=== PATIENT | female | born 2000 | race Caucasian/White ===

== ENCOUNTER 2022-05-03 18:15 | Emergency (ER) | payer OTHER, SELFPAY ==
[2022-05-03 18:18] VITALS: BP 111/75; PULSE 70; RESP 14; TEMP 36.3; O2SAT 100
--- NOTE | 2022-05-03 18:37 | ED.HEATRA ---
HPI - Head Injury General Chief complaint: Head Injury Stated complaint: Head Injury Time Seen by Provider: 05/03/22 18:32 History of Present Illness HPI Narrative: 22-year-old female presents to the emergency room for evaluation of a head injury. Patient states that she rolled out of bed this morning and struck her head on the dresser. Denies any LOC or altered mental status. Denies any nausea or vomiting. Denies any vision or hearing changes. Denies taking any medications to alleviate her headache. States that she went to work and worked a complete shift without incident today. Denies any dizziness or lightheadedness. Patient states that she took a nap prior to arrival and was able to wake up without any extensive somnolence. Review of Systems Review of Systems: CONSTITUTIONAL: Denies fever, chills, or sweats. EYES: Denies visual changes, redness, or discharge. ENT: Denies rhinorrhea, congestion, sore throat, or otalgia. CARDIOVASCULAR: Denies chest pain, palpitations, or edema. RESPIRATORY: Denies cough or dyspnea. GASTROINTESTINAL: Denies abdominal pain, nausea, vomiting, or diarrhea. GENITOURINARY: Denies dysuria or hematuria. SKIN: Denies rash or itching. MUSCULOSKELETAL: Denies back pain, joint pain, or myalgia. NEUROLOGIC: Denies headache, numbness, dizziness, or weakness. PSYCHIATRIC: Denies anxiety or depression. Exam Narrative: GENERAL: Well-appearing, well-nourished, no physical limitations, and in no acute distress. HEAD: Normocephalic, atraumatic. EYES: Conjunctivae normal, PERRLA and EOMI. ENT: External nose normal, Nares clear, no rhinorrhea or epistaxis. Mucous membranes moist. Oropharynx without tonsillar hypertrophy exudate or other lesions. External ears normal, bilateral TMs normal bilaterally NECK: Supple. CHEST: Clear to auscultation. No respiratory distress. No wheezes rales or rhonchi. HEART: Regular rate and rhythm. No murmur heard. Normal peripheral pulses. BACK: No midline cervical tenderness, step-offs, bony abnormality; FROM EXTREMITIES: Normal range of motion. No edema. No clubbing or cyanosis SKIN: Warm, dry, no rash. No noted wounds NEURO: No focal deficits. Alert and oriented x3. MAEW. CN's II-XI intact bilaterally, normal gait PSYCH: Cooperative. Normal mood and affect. Course Vital Signs Vital signs: Vital Signs Temperature 36.3 C L 05/03/22 18:18 Pulse Rate 70 05/03/22 18:18 Respiratory Rate 14 05/03/22 18:18 Blood Pressure 111/75 05/03/22 18:18 Pulse Oximetry 100 05/03/22 18:18 Oxygen Delivery Room Air 05/03/22 18:18 Temperature 36.3 C L 05/03/22 18:18 Pulse Rate 70 05/03/22 18:18 Respiratory Rate 14 05/03/22 18:18 Blood Pressure 111/75 05/03/22 18:18 Pulse Oximetry 100 05/03/22 18:18 Oxygen Delivery Room Air 05/03/22 18:18 MDM - Head Injury MDM Narrative Medical decision making narrative: 22-year-old female presented for evaluation of a head injury that occurred 13 hours ago. Patient is asymptomatic on presentation to the ER. Denies any altered mental status loss of consciousness or somnolence. Patient shows no signs of head injury red flags. Discharge Plan Discharge Clinical Impression: Closed head injury Patient Disposition: Home, Self-Care Condition: Stable Follow-up/Referrals: PHYSICIAN,[employer] [Primary Care Provider] - Time of Disposition: 18:39
== END 2022-05-03 19:17 | disposition home or self-care (01) ==
PROVIDERS: Emergency Provider Nurse Practitioner Family
DX: S09.90XA Unspecified injury of head, initial encounter (principal); W06.XXXA Fall from bed, initial encounter
CPT/HCPCS: 99283

== ENCOUNTER 2022-07-18 11:50 | Emergency (ER) | payer OTHER, SELFPAY ==
--- NOTE | ~2022-07-18 | XR_ITS ---
EXAMINATION: XR hand RT min 3V, XR wrist RT min 3V DATE: 07/18/2022 12:43 INDICATION: Right hand and wrist injury TECHNIQUE: 1. Posteroanterior, ulnar deviation, oblique, and lateral views of the right wrist were obtained. 2. Dorsal palmar, oblique and lateral views of the right hand were obtained. COMPARISON: None. FINDINGS: Alignment of the right hand and wrist is normal. No fracture identified. Joint spaces are normal. No focal soft tissue swelling. IMPRESSION: 1. Negative right hand and wrist radiographs. Reviewed, dictated and finalized at location A. IMPRESSION: 1. Negative right hand and wrist radiographs.
[2022-07-18 11:59] VITALS: BP 109/56; PULSE 90; RESP 16; TEMP 36.6; O2SAT 100
--- NOTE | 2022-07-18 12:30 | ED.GENADULT ---
HPI - General Adult General Chief complaint: Extremity Injury, Upper Stated complaint: Right hand pain Time Seen by Provider: 07/18/22 12:06 Source: patient Mode of arrival: ambulatory Limitations: no limitations History of Present Illness HPI narrative: This is a 22-year-old biological female who identifies as male who presents to the ED with chief complaint of right upper extremity injury occurring yesterday. Patient states that he was grabbing a weight off of the bench at the gym when the weight fell onto his hand while his hand was on the ground. Reports pain in the wrist. Denies bruising. States the pain has been about the same today as it was yesterday. Denies numbness or weakness. Related Data Allergies Allergy/AdvReac Type Severity Reaction Status Date / Time No Known Allergies Allergy Verified 07/18/22 13:33 Review of Systems Review of Systems: CONSTITUTIONAL: Denies fever, chills, or sweats. SKIN: Denies rash or itching. Denies bruising MUSCULOSKELETAL: Endorses right wrist pain. Denies back pain, joint pain, or myalgia. NEUROLOGIC: Denies headache, numbness, dizziness, or weakness. PSYCHIATRIC: Denies anxiety or depression. Exam Narrative: GENERAL: Well-appearing, well-nourished, and in no acute distress. HEAD: Normocephalic, atraumatic. EXTREMITIES: Right wrist: Tenderness in around the carpals and fourth and fifth metacarpal. No tenderness in the phalanges. Normal range of motion. No edema. Good strength and sensation. Negative anatomical snuffbox tenderness. Left upper extremity: Benign. No other tenderness throughout the right upper extremity. MSK exam is otherwise benign. SKIN: Warm, dry, no rash. NEURO: Alert and oriented x3. No focal deficits. PSYCH: Normal mood and affect. Course Vital Signs Vital signs: Vital Signs Temperature 97.8 F 07/18/22 11:59 Pulse Rate 90 07/18/22 11:59 Respiratory Rate 16 07/18/22 11:59 Blood Pressure 109/56 L 07/18/22 11:59 Pulse Oximetry 100 07/18/22 11:59 Oxygen Delivery Room Air 07/18/22 11:59 Temperature 97.8 F 07/18/22 11:59 Pulse Rate 90 07/18/22 11:59 Respiratory Rate 16 07/18/22 11:59 Blood Pressure 109/56 L 07/18/22 11:59 Pulse Oximetry 100 07/18/22 11:59 Oxygen Delivery Room Air 07/18/22 11:59 Medical Decision Making MDM Narrative Medical decision making narrative: This is a 22-year-old biological female who identifies as male, coming into the ED for chief complaint of right wrist injury occurring yesterday. Apparently patient dropped a weight from the bench press onto their right hand. Vitals stable. Exam shows tenderness in the right fourth and fifth metacarpals. X-rays of the right hand are negative. No snuffbox tenderness. Encourage patient to get an [id number] brace for wrist strain and follow-up with PCP on this. Prescription for naproxen given. Patient is understanding and agreeable with plan for discharge. Supportive measures discussed and return precautions Vital Signs Vital Signs: Vital Signs Temperature 97.8 F 07/18/22 11:59 Pulse Rate 90 07/18/22 11:59 Respiratory Rate 16 07/18/22 11:59 Blood Pressure 109/56 L 07/18/22 11:59 Pulse Oximetry 100 07/18/22 11:59 Oxygen Delivery Room Air 07/18/22 11:59 Temperature 97.8 F 07/18/22 11:59 Pulse Rate 90 07/18/22 11:59 Respiratory Rate 16 07/18/22 11:59 Blood Pressure 109/56 L 07/18/22 11:59 Pulse Oximetry 100 07/18/22 11:59 Oxygen Delivery Room Air 07/18/22 11:59 Discharge Plan Discharge Clinical Impression: Sprain and strain of wrist Patient Disposition: Home, Self-Care Condition: Stable Instructions: Antibiotic Form, Wrist Sprain (ED) Additional Instructions: Symptoms consistent with a wrist strain or sprain. No fractures on x-ray. I would get a [id number] wrist brace at [facility] or [facility]. Prescription for naproxen given for pain. Please follow-up with your primary
== END 2022-07-18 13:45 | disposition home or self-care (01) ==
LOC: ANHED 13:40
PROVIDERS: Emergency Provider Physician Assistant
DX: S63.501A Unspecified sprain of right wrist, initial encounter (principal); S66.911A Strain of unspecified muscle, fascia and tendon at wrist and hand level, right hand, initial encounter; W20.8XXA Other cause of strike by thrown, projected or falling object, initial encounter; Y93.B3 Activity, free weights
CPT/HCPCS: 73110; 73130; 99283

== ENCOUNTER 2023-04-23 17:30 | Emergency (ER) | payer SELFPAY ==
[2023-04-23 17:40] VITALS: BP 117/71; PULSE 58; RESP 16; TEMP 36.8; O2SAT 100
--- NOTE | 2023-04-23 18:10 | ED.URI ---
HPI - URI/Sore Throat General Chief Complaint: Upper Respiratory Infection Stated Complaint: Fever Time Seen by Provider: 04/23/23 18:10 Source: patient and RN notes reviewed Mode of arrival: ambulatory Limitations: no limitations History of Present Illness HPI Narrative: 23-year-old presents with concern for 1 and half week history of cough, nasal congestion and drainage. Reports initially had fevers. Reports they have been taking DayQuil without relief. MD elicited complaint: nasal congestion Related Data Allergies Allergy/AdvReac Type Severity Reaction Status Date / Time No Known Allergies Allergy Verified 04/23/23 17:47 Review of Systems Review of Systems: CONSTITUTIONAL: Denies malaise, chills, sweats, or fever. EYES: Denies visual changes, redness, or discharge. ENT: Reports rhinorrhea, congestion, sinus pain CARDIOVASCULAR: Denies chest pain, palpitations, or edema. RESPIRATORY: Reports cough. Denies dyspnea. GASTROINTESTINAL: Denies abdominal pain, nausea, vomiting, diarrhea SKIN: Denies rash or itching. MUSCULOSKELETAL: Denies myalgia. NEUROLOGIC: Denies headache. All systems reviewed & are unremarkable except as noted in HPI and below PMFSH Comments At time of signature, agree with nursing past medical, surgical, social and family history. There is no relevant family history pertinent to the presenting complaint Exam Narrative: GENERAL: Well-appearing, well-nourished, and in no acute distress. HEAD: Normocephalic EYES: PERRLA, conjunctivae clear ENT: Nares clear, turbinates edematous and erythematous, clear discharge. Mucous membranes moist. TM pearly jose with dull light reflex bilaterally; no tragal tenderness. Oropharynx not erythematous without lesions. Tonsils not enlarged and without exudate, no drooling, no hoarseness, no trismus, uvula midline. NECK: Supple. No lymphadenopathy CHEST: Clear to auscultation, breath sounds equal. No wheezing, rhonchi, rales, or stridor. No respiratory distress, speaks in full sentences. HEART: Regular rate and rhythm. No murmur heard. SKIN: Warm, dry, no rash. NEURO: Alert and oriented x3. PSYCH: Normal mood and affect Course Course Emergency Course: Patient is aware of diagnosis, understands and agrees to treatment plan. Anticipatory guidance given. Patient agrees to follow-up as directed and is aware of reasons to seek care at the emergency department. Portions of this record may have been created with voice recognition software Level of Care: Express Care Visit Vital Signs Vital signs: Vital Signs Temperature 98.2 F 04/23/23 17:40 Pulse Rate 58 L 04/23/23 17:40 Respiratory Rate 16 04/23/23 17:40 Blood Pressure 117/71 04/23/23 17:40 Pulse Oximetry 100 04/23/23 17:40 Oxygen Delivery Room Air 04/23/23 17:40 Temperature 98.2 F 04/23/23 17:40 Pulse Rate 58 L 04/23/23 17:40 Respiratory Rate 16 04/23/23 17:40 Blood Pressure 117/71 04/23/23 17:40 Pulse Oximetry 100 04/23/23 17:40 Oxygen Delivery Room Air 04/23/23 17:40 Reviewed. MDM - URI/Sore Throat MDM Narrative Medical decision making narrative: Differential diagnosis considered: Coelho virus, strep pharyngitis, allergic rhinitis, upper respiratory tract infection, sinusitis, rhinosinusitis, nasopharyngitis. viral pharyngitis, otitis media, otitis externa, pneumonia, bronchitis, viral cough syndrome, viral syndrome, and influenza. Exam findings show no acute concerns or changes; patient is non-toxic appearing and is in no distress. Patient is appropriate for outpatient treatment and follow-up. Lab Data Attestation: I reviewed the patient's lab results. Critical Care Time Critical Care Time Critical Care Time: No Discharge Plan Discharge Clinical Impression: Sinobronchitis Patient Disposition: Home, Self-Care Condition: Stable Instructions: Antibiotic Form, Sinusitis (ED), Acute Bronchitis (ED) Additional Instructions: Take medication a
== END 2023-04-23 18:24 | disposition home or self-care (01) ==
PROVIDERS: Emergency Provider Nurse Practitioner
DX: J40 Bronchitis, not specified as acute or chronic (principal)
CPT/HCPCS: 99213; G0463

== ENCOUNTER 2023-09-04 14:23 | Emergency (ER) | payer SELFPAY ==
[2023-09-04 14:25] VITALS: BP 122/70; PULSE 79; RESP 20; TEMP 36.8; O2SAT 100
--- NOTE | 2023-09-04 17:59 | ED.DENTAL ---
HPI - Dental/Oral General Chief complaint: Dental/Oral Stated complaint: jaw pain Time Seen by Provider: 09/04/23 17:07 Source: patient Mode of arrival: ambulatory Limitations: no limitations History of Present Illness HPI Narrative: This is a 23 year old that presents to the ER for bleeding gums. Reports irritation and bleeding to the gums. They do not currently have a dentist. Also reports pain at the TMJ bilaterally. They have been taking Tylenol and anti-inflammatories with little relief. Denies fevers, recent injuries. Related Data Allergies Allergy/AdvReac Type Severity Reaction Status Date / Time No Known Allergies Allergy Verified 09/04/23 16:16 Review of Systems Review of Systems: CONSTITUTIONAL: Denies fever ENT: Reports dentalgia MUSCULOSKELETAL: Reports joint pain, and myalgia. All systems reviewed & are unremarkable except as noted in HPI and below PMFSH Past Medical History Medical History (Updated 09/04/23 @ 18:08 by Emely Mauro PA-C) No active medical problems Social History Social History (Updated 09/04/23 @ 18:08 by Emely Mauro PA-C) Substance use: never Exam Narrative: GENERAL: Well-appearing, well-nourished, and in no acute distress. HEAD: Normocephalic, atraumatic. EYES: EOMI. ENT: Mucous membranes moist. Oropharynx without tonsillar hypertrophy exudate or other lesions. Pain at the TMJ with ROM. Gingiva are erythematous with plaque build up. No edema or fluctuance to suggest abscess NECK: Supple. No adenopathy or masses. CHEST: Clear to auscultation. No respiratory distress. No wheezes rales or rhonchi HEART: Regular rate and rhythm. No murmur heard. Normal peripheral pulses. EXTREMITIES: Normal range of motion. No edema. SKIN: Warm, dry, no rash. NEURO: No focal deficits. Alert and oriented x3. PSYCH: Normal mood and affect Course Course Emergency Course: Patient agrees with plan of care Vital Signs Vital signs: Vital Signs Temperature 98.3 F 09/04/23 14:25 Pulse Rate 79 09/04/23 14:25 Respiratory Rate 20 09/04/23 14:25 Blood Pressure 122/70 09/04/23 14:25 Pulse Oximetry 100 09/04/23 14:25 Oxygen Delivery Room Air 09/04/23 14:25 Temperature 98.3 F 09/04/23 14:25 Pulse Rate 79 09/04/23 14:25 Respiratory Rate 20 09/04/23 14:25 Blood Pressure 122/70 09/04/23 14:25 Pulse Oximetry 100 09/04/23 14:25 Oxygen Delivery Room Air 09/04/23 14:25 MDM - Dental/Oral MDM Narrative Medical decision making narrative: Patient presents to the emergency department for pain in the TMJ, also pain and bleeding of gums. Instructed on further care of TMJ arthralgia. Exam without evidence of gingivitis. No abscess present. Instructed to have follow-up with a dentist for further care. Will be given prescription for chlorhexidine. Given warnings to return to the ER Differential Diagnosis Differential diagnosis: Likely gingival abscess, dental caries, dental abscess and other (Gingivitis, TMJ arthralgia) Critical Care Time Critical Care Time Critical Care Time: No Discharge Plan Discharge Clinical Impression: Gingivitis TMJ arthralgia Qualifiers: Laterality: bilateral Qualified Code(s): M26.623 - Arthralgia of bilateral temporomandibular joint Patient Disposition: Home, Self-Care Condition: Stable Instructions: Antibiotic Form, Gingivitis (DC), Temporomandibular Disorder (ED) Additional Instructions: Return to the emergency department if you experience fever, difficulty breathing, trouble swallowing, or any other symptoms that are concerning to you. [id number] pain medication as needed. Muscle relaxer as needed for pain. You would benefit from follow-up with a dentist. [facility] if needed Prescriptions: New chlorhexidine gluconate [Paroex Oral Rinse] 0.12 % mouthwash 15 ml mucous membrane BID Qty: 473 0RF cyclobenzaprine 10 mg tablet 10 mg PO TID PRN (Reason: muscle spasm) Qt
[2023-09-04 18:23] VITALS: BP 118/74; PULSE 98; RESP 15; TEMP 37; O2SAT 100
== END 2023-09-04 18:25 | disposition home or self-care (01) ==
PROVIDERS: Emergency Provider Physician Assistant
DX: K05.10 Chronic gingivitis, plaque induced (principal); M26.623 Arthralgia of bilateral temporomandibular joint
CPT/HCPCS: 99283